=== PATIENT | male | born 1990 | race Caucasian/White ===

== ENCOUNTER 2023-05-03 21:57 | Inpatient (IN) | payer MEDICARE, MEDICAID, SELFPAY ==
--- NOTE | ~2023-05-03 | CT_ITS ---
EXAMINATION: CT ABDOMEN AND PELVIS WITH CONTRAST CLINICAL INFORMATION: Abdominal pain COMPARISON: None available. TECHNIQUE: Multidetector volumetric images were obtained from the superior aspect of the liver through the pubic symphysis following administration 85 mL of Omnipaque 350 intravenous contrast. Sagittal and coronal reformatted images were obtained on the technologist's workstation. Oral contrast: No This CT examination was performed using dose optimization techniques as appropriate, variously including the following: *Automated exposure control *Adjustment of mA and/or kV according to patient size (this includes techniques or standardized protocols for targeted exams where dose is matched to indication/reason for exam; i.e. extremities or head) *Use of iterative reconstruction technique DLP: 491 mGy-cm FINDINGS: LUNG BASES: Unremarkable. ABDOMINAL AND PELVIC WALL: Unremarkable. LIVER AND BILIARY TREE: Unremarkable. GALLBLADDER: Unremarkable. PANCREAS: Unremarkable. SPLEEN: Unremarkable. ADRENAL GLANDS: Unremarkable. KIDNEYS AND URETERS: Left renal hypodensity is too small to characterize. Nonobstructing left lower pole renal stone 4 mm nonobstructing left lower pole renal stone. GASTROINTESTINAL TRACT: Circumferential distal esophageal wall thickening, recommend correlation with symptoms of reflux or esophagitis. Stratified by laminar hyperenhancement involving the rectosigmoid colon. There is long segment stratified bilaminar hyperenhancement involving the distal ileum. There is a small bowel surgical anastomosis in the left hemiabdomen with an end to side anastomosis. Multiple dilated stacked loops of small bowel with fecalization of bowel contents proximal to a loop of jejunum with some mild wall thickening and transmural hyperenhancement with some subtle angulation of the bowel in this region in the right lower quadrant, 3:43, raising suspicion for underlying adhesions and small bowel obstruction, possibly secondary to active inflammatory bowel disease. No pneumatosis or portal venous gas. VASCULAR: IVC filter tip terminates below the level of the renal veins. LYMPH NODES/PERITONEUM: No lymphadenopathy. FREE FLUID: None. BLADDER: Unremarkable. PELVIC VISCERA: Unremarkable. OSSEOUS STRUCTURES: Remote right iliac wing fracture. Age-indeterminate wedge compression deformity of the L2 vertebral body with 25% height loss and mild focal kyphosis at this level. CT/CT abdomen pelvis w IV con IMPRESSION: 1. Multiple dilated stacked loops of small bowel with fecalization of bowel contents proximal to a loop of jejunum with some mild wall thickening and transmural hyperenhancement with some subtle angulation of the bowel in this region in the right lower quadrant, raising suspicion for underlying adhesions and small bowel obstruction, possibly secondary to active inflammatory bowel disease. No pneumatosis or portal venous gas. 2. Stratified by laminar hyperenhancement involving the rectosigmoid colon and long segment of ileum, which can be seen in the setting of inflammatory bowel disease. 3. Age-indeterminate wedge compression deformity of the L2 vertebral body with 25% height loss and mild focal kyphosis at this level. 4. Circumferential distal esophageal wall thickening, recommend correlation with symptoms of reflux or esophagitis. 5. Nonobstructing left lower pole renal stone measuring 4 mm. The findings and recommendations were discussed with Heriberto JIMENEZ by telephone at 05/04/2023 12:08 AM and it was ascertained that the content and urgency of the report was understood at the time of direct communication.
--- NOTE | ~2023-05-03 | FL_ITS ---
EXAMINATION: FL SMALL BOWEL FOLLOW-THROUGH CLINICAL INFORMATION: Abdominal pain, nausea/vomiting COMPARISON: CT abdomen pelvis 05/03/2023 TECHNIQUE: Following a professor of sport management image of the abdomen, contrast was administered through the patient's nasogastric tube., and interval abdominal radiographs were performed to assess for contrast progression through the small bowel. FINDINGS: Head Of Transport Logistics image of the abdomen demonstrates the presence of the nasogastric tube, the tip located in the distal body the stomach. An IVC filter is present at the L3/L4 level. A surgical anastomosis is present in the left upper quadrant. At 1 hour, there is dilute contrast present in the left mid abdomen. The majority of contrast remains in the fundus of the stomach. The patient shortly vomited after the one-hour film. At 1 hour 25 minutes, there is minimal contrast left in the stomach. Very dilute contrast is seen in nondilated small bowel in the left abdomen. In review of the CT abdomen contrast from 05/03/2023, there appears to be thickening of the proximal ileum in the right mid abdomen, with a sudden angulation likely related to adhesions (best seen coronal series 7, image 25 of 92). This is not visible on this small bowel series, and repeat CT imaging in 2 days may be of benefit. FLUOROSCOPY TIME: 0.1 minutes DOSE AREA PRODUCT: 186 uGy-m2 (microgray-meter squared) FL/FL small bowel follow through IMPRESSION: Noncontributory small bowel follow-through. Very dilute Gastrografin is seen in the nondilated small bowel segments in the left abdomen. No dilated bowel, and no definite obstruction seen. Please see above for additional comments regarding the CT examination from 05/03/2023. This procedure was performed by Heriberto Douglass PA-C, and supervised by Dr. Burgess
--- NOTE | ~2023-05-03 | XR_ITS ---
EXAMINATION: XR CHEST CLINICAL INFORMATION: Nasogastric tube placement. COMPARISON: None available. TECHNIQUE: 3 Frontals view of the chest was obtained. FINDINGS: The cardiomediastinal silhouette is within normal limits. There appears to be minimal atelectatic change at the lung bases. The lungs are otherwise clear. A gastric tube is coiled within the esophagus on the first image and is in an expected normal position on the last 2 images extending below the diaphragm with tip overlying the region of the gastric antrum/proximal duodenum. The bony structures and soft tissues are unremarkable XR/XR chest 1V IMPRESSION: Gastric tube in place. There appears to be minimal atelectatic change at the lung bases.
[2023-05-03 22:03] VITALS: BP 130/85; PULSE 80; O2SAT 98
[2023-05-03 22:05] VITALS: BMI 31.3
[2023-05-03] MEDS: 0.9 % Sodium Chloride 1,000 ML 999 ML IV (22:25)
[2023-05-03 22:28] VITALS: RESP 16
[2023-05-03] MEDS: Morphine Sulfate 4 MG/ML CARTRIDGE IVPUSH (22:28)
[2023-05-03] MEDS: ondansetron HCL 4 MG/2 ML VIAL IVPUSH (22:28)
[2023-05-03 22:38] VITALS: BP 132/87; PULSE 64; RESP 16; TEMP 36.9; O2SAT 100
[2023-05-03 22:38] LABS: Basophils Absolute Auto 0.1 X10*3/uL (0.0-0.2); Basophils Percent Auto 0.2 % (0-2); Eosinophils Absolute Auto 0.1 X10*3/uL (0.0-0.4); Eosinophils Percent Auto 0.6 % (0-4); Hematocrit 44.9 % (42.0-52.0); Hemoglobin 15.9 g/dl (14.0-18.0); Imm Gran Abs Auto 0.08 X10*3/uL (0.00-0.03); Imm Gran Pct Auto 0.4 % (0.0-0.4); Lymphocytes Percent Auto 14.2 % (20-40); MANUAL DIFF FLAG SCAN; Mean Corpuscular HGB Conc 35.4 g/dl (31.0-36.0); Mean Corpuscular Hemoglobin 31.9 pg (27.0-33.0); Mean Corpuscular Volume 90.2 fL (80.0-98.0); Mean Platelet Volume 10.1 fL (9.4-12.4); Monocytes Absolute Auto 1.5 X10*3/uL (0.1-1.2); Monocytes Percent Auto 7.1 % (2-11); Neutrophils Absolute Auto 16.6 x10*3/uL (2.0-8.3); Neutrophils Percent Auto 77.5 % (45-73); Platelet Count 243 X10*3/uL (160-400); Red Blood Count 4.98 X10*6/uL (4.60-5.80); Red Cell Distribution Width 12.8 % (11.0-16.0); SCAN SMEAR FLAG 1; White Blood Count 21.5 X10*3/uL (4.8-10.8)
[2023-05-03 22:39] LABS: SLIDE REVIEW VERIFIED
[2023-05-03 22:53] LABS: INTERNATIONAL NORM RATIO 0.9 (0.9-1.1); Prothrombin Time 10.8 SEC (11.1-13.3)
[2023-05-03 22:54] LABS: Anion Gap 21 (12-20); Blood Urea Nitrogen 12 mg/dL (9-16); Calcium 9.2 mg/dL (8.4-10.2); Carbon Dioxide 19 mmol/L (22-29); Chloride 103 mmol/L (96-108); Creatinine Clr Calc Pharmacy 141.9; Estimated Glomerular Filt Rate > 60; Glucose Random 127 mg/dL (60-115); Lipase 39 U/L (8-78); Potassium 4.6 mmol/L (3.3-5.1); Sodium 138 mmol/L (135-145)
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
[2023-05-03 22:56] LABS: Partial Thromboplastin Time 29.3 SEC (26.0-36.4)
[2023-05-03] MEDS: iohexoL 350 MG/ML 100 ML INFUS..BTL IV (23:35)
[2023-05-04 00:24] VITALS: BP 134/97; PULSE 73; RESP 16; TEMP 36.7; O2SAT 99
--- NOTE | 2023-05-04 00:24 | ECG_ITS ---
Test Reason : ABD PAIN Blood Pressure : / mmHG Vent. Rate : 079 BPM Atrial Rate : 079 BPM P-R Int : 106 ms QRS Dur : 102 ms QT Int : 388 ms P-R-T Axes : 076 071 077 degrees QTc Int : 444 ms Sinus rhythm with sinus arrhythmia Otherwise normal ECG No previous ECGs available Referred By: Heriberto Berry Electronically Signed By:AMY SOLANO MD
--- NOTE | 2023-05-04 00:33 | MHC.EDTECH ---
Patient ekg done and was read by Provider ,vitals taken and Pt belonging list done .
[2023-05-04] MEDS: Lidocaine HCl Viscous 2 % 15 ML SOLUTION MUCOUS MEM (00:40)
[2023-05-04] MEDS: ondansetron HCL 4 MG/2 ML VIAL IVPUSH ×2 (00:40→09:33)
--- NOTE | 2023-05-04 00:54 | PC.NURSE ---
attempted x2 to place NG tube. pt unable to sit still. swinging at this RN. pt refusing NG at this time. another RN entered room, third attempt to place NG tube. pt again stating this isnt going to fucking happen unless you sedate me and put me out. i just want to be left alone to fucking sleep. explained to pt the importance of placing tube in regards to his condition. pt still refusing. PA made aware. pt to be medicated with ativan and dilaudid in order to attempt placement of NG tube again. PA did speak with pt and he states he will be more cooperative with NG tube placement.
[2023-05-04] MEDS: HYDROmorphone HCl 1 MG/ML SYRINGE IVPUSH (00:57)
[2023-05-04] MEDS: LORazepam 2 MG/ML VIAL 1 MG IVPUSH (00:57)
--- NOTE | 2023-05-04 01:01 | PC.NURSE ---
medicated per Aug, notified LORELEI Heck
--- NOTE | 2023-05-04 02:44 | PC.NURSE ---
at 2AM pt agreeable to have NG tube placed; after 2 attempts succesfully placed NG tube 16 FR in left nare. placed to intermittent suction.
[2023-05-04 03:00] VITALS: BP 131/85; PULSE 111; RESP 18; TEMP 36.8; O2SAT 95
[2023-05-04] MEDS: Lactated Ringers 1,000 ML 100 ML IVCONT ×3 (03:00→23:28)
--- NOTE | 2023-05-04 06:16 | PHA.MEDREC ---
Pharmacy Consult ? Medication Reconciliation Pharmacy has completed the medication reconciliation. Med rec complete using claim history. Pt family told nursing we needed to find out what the home meds are and pt had tbi so he is unable to assist in med history.
[2023-05-04 06:25] LABS: MANUAL DIFF FLAG NO
[2023-05-04] MEDS: HYDROmorphone HCl 0.5 MG/0.5 ML SYRINGE IVPUSH ×3 (06:35→18:38)
--- NOTE | 2023-05-04 06:38 | PC.NURSE ---
at 0635 medicated with dilaudid 0.5 mg iv pt not sure if he has more pain or he just wants to sleep
[2023-05-04 06:47] LABS: Basophils Percent Auto 0.1 % (0-2); Eosinophils Percent Auto 0.1 % (0-4); Hematocrit 45.1 % (42.0-52.0); Hemoglobin 15.7 g/dl (14.0-18.0); Imm Gran Abs Auto 0.05 X10*3/uL (0.00-0.03); Imm Gran Pct Auto 0.3 % (0.0-0.4); Lymphocytes Absolute Auto 1.4 X10*3/uL (1.2-4.9); Lymphocytes Percent Auto 9.3 % (20-40); Mean Corpuscular HGB Conc 34.8 g/dl (31.0-36.0); Mean Corpuscular Volume 91.9 fL (80.0-98.0); Mean Platelet Volume 10.3 fL (9.4-12.4); Monocytes Absolute Auto 0.9 X10*3/uL (0.1-1.2); Monocytes Percent Auto 6.2 % (2-11); Neutrophils Absolute Auto 12.7 x10*3/uL (2.0-8.3); Platelet Count 228 X10*3/uL (160-400); Red Blood Count 4.91 X10*6/uL (4.60-5.80); Red Cell Distribution Width 12.8 % (11.0-16.0); White Blood Count 15.1 X10*3/uL (4.8-10.8)
[2023-05-04 07:40] VITALS: BP 122/78; PULSE 107; RESP 18; TEMP 36; O2SAT 95
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
[2023-05-04] MEDS: Divalproex Sodium ER 500 MG TAB.ER.24H PO (12:39)
[2023-05-04 16:00] VITALS: BP 116/66; PULSE 99; RESP 18; TEMP 36.6; O2SAT 97
[2023-05-04 19:48] VITALS: BP 116/74; PULSE 109; RESP 18; TEMP 37.1; O2SAT 96
[2023-05-04] MEDS: Divalproex Sodium ER 250 MG TAB.ER.24H PO (20:23)
[2023-05-04] MEDS: Divalproex Sodium ER 500 MG TAB.ER.24H 1000 MG PO (20:23)
[2023-05-04] MEDS: Amitriptyline HCl 50 MG TABLET PO (20:23)
[2023-05-05 03:44] VITALS: BP 103/55; PULSE 98; RESP 16; TEMP 36.3; O2SAT 96
[2023-05-05 06:49] VITALS: BP 107/56; PULSE 90; RESP 16; TEMP 36.1; O2SAT 96
--- NOTE | 2023-05-05 07:58 | P.PNGS_ITS ---
Subjective Subjective Date of Service: 05/05/23 Interval history: Feels much better this morning. He denies any abdominal pain, nausea or vomiting. Passing more flatus. Confirmed with RN as patient poor historian. Physical Exam 2 Vital Signs: Vital Signs: Last Vital Signs Temp 97 F 05/05/23 06:49 Pulse 90 05/05/23 06:49 Resp 16 05/05/23 06:49 BP 107/56 L 05/05/23 06:49 Pulse Ox 96 05/05/23 06:49 O2 Del Method Room Air 05/05/23 06:49 BMI result Body Mass Index 31.3 Const: General: comfortable, no acute distress and alert O rientation/consciousness: patient oriented x3 HEENT: Other: NGT in place, clearish output Resp: Effort & Inspection: normal respiratory effort GI: Inspection: Yes distended (mild, decreased) Palpation (GI): Soft to palpation, nontender, no guarding and not rigid Percussion: Yes normal to percussion Skin: General skin exam: no rashes or lesions noted Neuro: General: patient oriented x3 and moves all extremities Objective Data Active Medications Amitriptyline HCl (Amitriptyline Hcl 50 Mg Tablet) 50 mg PO BEDTIME [facility] Last Admin: 05/04/23 20:23 Dose: 50 mg Documented By: DOUG Amitriptyline HCl (Amitriptyline Hcl 25 Mg Tablet) 25 mg PO DAILY [facility] Divalproex Sodium (Divalproex Sodium Er 500 Mg Tab.Er.24h) 1,000 mg PO BEDTIME [facility] Last Admin: 05/04/23 20:23 Dose: 1,000 mg Documented By: DOUG Divalproex Sodium (Divalproex Sodium Er 250 Mg Tab.Er.24h) 250 mg PO BEDTIME [facility] Last Admin: 05/04/23 20:23 Dose: 250 mg Documented By: DOUG Divalproex Sodium (Divalproex Sodium Er 500 Mg Tab.Er.24h) 500 mg PO DAILY [facility] Hydromorphone HCl (Hydromorphone Hcl 0.5 Mg/0.5 Ml Syringe) 0.5 mg IVPUSH Q4H PRN; Protocol PRN Reason: Pain, Severe (Pain Scale 7-10) Last Admin: 05/04/23 18:38 Dose: 0.5 mg Documented By: MOODY Lactated Ringer's (Lr) 1,000 mls @ 100 mls/hr IVCONT .Q10H [facility] Last Admin: 05/04/23 23:28 Dose: 100 mls/hr Documented By: DOUG Naltrexone HCl (Naltrexone Hcl 50 Mg Tablet) 50 mg PO DAILY [facility] Ondansetron HCl (Ondansetron Hcl 4 Mg/2 Ml Vial) 4 mg IVPUSH Q8H PRN PRN Reason: Nausea and Vomiting Last Admin: 05/04/23 09:33 Dose: 4 mg Documented By: GINNA Sodium Chloride (0.9 % Sodium Chloride Flush 3 Ml Syringe) 3 ml IVFLUSH QSHIFT [facility] Last Admin: 05/04/23 21:03 Dose: Not Given Documented By: DOUG Non-Admin Reason: IV Running Zolpidem Tartrate (Zolpidem Tartrate 5 Mg Tablet) 5 mg PO BEDTIME PRN PRN Reason: Insomnia Labs 05/04/23 05:59 05/03/23 22:27 Procedures Date of Service Date of Service: 05/05/23 Progress Note: A&P Assessment and plan (1) SBO (small bowel obstruction): Status: Acute Plan 33 year old male with multiple abdominal surgeries admitted with SBO. Appears to be resolving. NGT with scant output and with increasing evidence of GI function, abd benign and less distended. Will clamp NGT for 4 hrs, check residual. Unclamp sooner if develops worsening abd pain, nausea or vomiting, increasing abd distention. Patient comfortable with plan. Time Spent With Patient Time: Total time managing care of this patient today ____ minutes. Quality Stroke Does the patient have a stroke diagnosis?: No VTE Prior VTE?: No VTE Risk Level:: Surgical - low VTE Device Contraindication: Treatment Not Indicated VTE Drug Contraindication: Treatment Not Indicated
[2023-05-05] MEDS: Divalproex Sodium ER 500 MG TAB.ER.24H PO (09:20)
[2023-05-05] MEDS: Naltrexone HCl 50 MG TABLET PO (09:20)
[2023-05-05] MEDS: Amitriptyline HCl 25 MG TABLET PO (09:20)
--- NOTE | 2023-05-05 13:37 | MHC.CM.PN ---
Pt not medically cleared for D/C today. CM to follow.
[2023-05-05 16:00] VITALS: BP 131/73; PULSE 93; RESP 16; TEMP 36.2; O2SAT 98
[2023-05-05] MEDS: 0.9 % Sodium Chloride Flush 3 ML SYRINGE IVFLUSH (16:55)
[2023-05-05] MEDS: Lactated Ringers 1,000 ML 100 ML IVCONT ×2 (16:55→20:09)
[2023-05-05 19:35] VITALS: BP 119/75; PULSE 78; RESP 16; TEMP 36.7; O2SAT 99
[2023-05-05] MEDS: Amitriptyline HCl 50 MG TABLET PO (20:08)
[2023-05-05] MEDS: Divalproex Sodium ER 500 MG TAB.ER.24H 1000 MG PO (20:08)
[2023-05-05] MEDS: Divalproex Sodium ER 250 MG TAB.ER.24H PO (20:08)
[2023-05-06 03:50] VITALS: BP 105/59; PULSE 88; RESP 18; TEMP 36.1; O2SAT 99
[2023-05-06] MEDS: Lactated Ringers 1,000 ML 100 ML IVCONT (04:52)
[2023-05-06 06:55] VITALS: BP 110/58; PULSE 72; RESP 16; TEMP 36.1; O2SAT 98
[2023-05-06] MEDS: Nicotine 21 MG PATCH.TD24 TRANSDERMA (09:04)
[2023-05-06] MEDS: Divalproex Sodium ER 500 MG TAB.ER.24H PO (09:05)
[2023-05-06] MEDS: Amitriptyline HCl 25 MG TABLET PO (09:05)
[2023-05-06] MEDS: Naltrexone HCl 50 MG TABLET PO (09:05)
--- NOTE | 2023-05-06 09:05 | PM.PNGS ---
Subjective Subjective Date of Service: 05/06/23 Interval history: IV infiltrated and R hand swollen. Feels great, denies abdominal pain. Tolerating liquids. Continues to pass flatus and had another BM this movement. Wants to eat and go home. Physical Exam Vital Signs: Vital Signs: Last Vital Signs Temp 97 F 05/06/23 06:55 Pulse 72 05/06/23 06:55 Resp 16 05/06/23 06:55 BP 110/58 L 05/06/23 06:55 Pulse Ox 98 05/06/23 06:55 O2 Del Method Room Air 05/06/23 06:55 BMI result Body Mass Index 31.3 Const: General: comfortable, no acute distress and alert Orientation/consciousness: patient oriented x3 Resp: Effort & Inspection: normal respiratory effort GI: Inspection: No distended Palpation (GI): Soft to palpation, nontender, no guarding and not rigid Percussion: Yes normal to percussion Skin: General skin exam: no rashes or lesions noted Neuro: General: patient oriented x3 Objective Data Active Medications Amitriptyline HCl (Amitriptyline Hcl 50 Mg Tablet) 50 mg PO BEDTIME [facility] Last Admin: 05/05/23 20:08 Dose: 50 mg Documented By: DOUG Amitriptyline HCl (Amitriptyline Hcl 25 Mg Tablet) 25 mg PO DAILY [facility] Last Admin: 05/05/23 09:20 Dose: 25 mg Documented By: J LUIS Divalproex Sodium (Divalproex Sodium Er 500 Mg Tab.Er.24h) 1,000 mg PO BEDTIME [facility] Last Admin: 05/05/23 20:08 Dose: 1,000 mg Documented By: DOUG Divalproex Sodium (Divalproex Sodium Er 250 Mg Tab.Er.24h) 250 mg PO BEDTIME [facility] Last Admin: 05/05/23 20:08 Dose: 250 mg Documented By: DOUG Divalproex Sodium (Divalproex Sodium Er 500 Mg Tab.Er.24h) 500 mg PO DAILY [facility] Last Admin: 05/05/23 09:20 Dose: 500 mg Documented By: J LUIS Hydromorphone HCl (Hydromorphone Hcl 0.5 Mg/0.5 Ml Syringe) 0.5 mg IVPUSH Q4H PRN; Protocol PRN Reason: Pain, Severe (Pain Scale 7-10) Last Admin: 05/04/23 18:38 Dose: 0.5 mg Documented By: MOODY Naltrexone HCl (Naltrexone Hcl 50 Mg Tablet) 50 mg PO DAILY [facility] Last Admin: 05/05/23 09:20 Dose: 50 mg Documented By: J LUIS Nicotine (Nicotine 21 Mg Patch.Td24) 21 mg TRANSDERMA DAILY [facility] Ondansetron HCl (Ondansetron Hcl 4 Mg/2 Ml Vial) 4 mg IVPUSH Q8H PRN PRN Reason: Nausea and Vomiting Last Admin: 05/04/23 09:33 Dose: 4 mg Documented By: GINNA Sodium Chloride (0.9 % Sodium Chloride Flush 3 Ml Syringe) 3 ml IVFLUSH QSHIFT [facility] Last Admin: 05/05/23 20:13 Dose: Not Given Documented By: DOUG Non-Admin Reason: IV Running Zolpidem Tartrate (Zolpidem Tartrate 5 Mg Tablet) 5 mg PO BEDTIME PRN PRN Reason: Insomnia Labs 05/04/23 05:59 05/03/23 22:27 Procedures Date of Service Date of Service: 05/06/23 Progress Note: A&P Assessment and plan (1) SBO (small bowel obstruction): Status: Acute Plan Advance to solid diet. Home if tolerating without symptoms. Patient comfortable with plan. encouraged R hand elevation, hot packs to reduce swelling. Time Spent With Patient Time: Total time managing care of this patient today ____ minutes. Quality Stroke Does the patient have a stroke diagnosis?: No VTE Prior VTE?: No VTE Risk Level:: Surgical - low VTE Device Contraindication: Treatment Not Indicated VTE Drug Contraindication: Treatment Not Indicated
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
--- NOTE | 2023-05-06 13:16 | MHC.CM.PN ---
IMM 05/04/23 Patient is discharged to home self care today. Family will provide assist and transport home.
== END 2023-05-06 12:42 | disposition home or self-care (01) | DRG 390 ==
LOC: HO.ED 05-04 00:28 → HO.EDOVER 05-04 00:42 → HO.S3 05-04 02:17
PROVIDERS: Physician Assistant; Admitting Provider Surgery; Emergency Provider Emergency Medicine; PCP Internal Medicine; Visit Provider Surgery
DX: K56.609 Unspecified intestinal obstruction, unspecified as to partial versus complete obstruction (principal); Z87.820 Personal history of traumatic brain injury; Z79.899 Other long term (current) drug therapy
CPT/HCPCS: 36415; 71045; 74177; 74250; 80048; 83605; 83690; 85025; 85610; 85730; 93005; 99285; J1170; J2060; J2270; J2405; J7120; Q9967

== ENCOUNTER 2023-05-04 00:32 | Outpatient (BNV) | payer MEDICARE, MEDICAID, SELFPAY | END 2023-05-04 07:45 | PROVIDERS: Admitting Provider Surgery; Emergency Provider Emergency Medicine; PCP Internal Medicine; Visit Provider Radiology Diagnostic Radiology | DX: R10.9 Unspecified abdominal pain (principal) | CPT/HCPCS: 74250 ==

== ENCOUNTER → 2023-05-04 00:32 | Outpatient (BNV) | payer MEDICARE, MEDICAID, SELFPAY | PROVIDERS: Admitting Provider Surgery; Emergency Provider Emergency Medicine; PCP Internal Medicine; Visit Provider Physician Assistant Surgical | DX: K56.609 Unspecified intestinal obstruction, unspecified as to partial versus complete obstruction (principal) | CPT/HCPCS: 99222; 99232; 99238 ==

== ENCOUNTER 2023-05-18 00:55 | Emergency (ER) | payer MEDICARE, MEDICAID, SELFPAY ==
--- NOTE | 2023-05-18 | ECG_ITS ---
Test Reason : SEIZURE Blood Pressure : / mmHG Vent. Rate : 091 BPM Atrial Rate : 091 BPM P-R Int : 136 ms QRS Dur : 096 ms QT Int : 356 ms P-R-T Axes : 045 046 056 degrees QTc Int : 437 ms Normal sinus rhythm Normal ECG When compared with ECG of 04-MAY-2023 00:26, No significant change was found Referred By: Generic ED Physician Electronically Signed By:NURYS CHAVEZ
[2023-05-18 01:02] VITALS: BP 111/79; PULSE 96; O2SAT 100; BMI 21.5
[2023-05-18 01:12] VITALS: BP 126/82; PULSE 100; RESP 18; TEMP 36.7; O2SAT 98
[2023-05-18 01:30] LABS: MANUAL DIFF FLAG NO
[2023-05-18 01:32] LABS: Basophils Percent Auto 0.4 % (0-2); Eosinophils Absolute Auto 0.2 X10*3/uL (0.0-0.4); Eosinophils Percent Auto 2.8 % (0-4); Hematocrit 42.6 % (42.0-52.0); Hemoglobin 14.3 g/dl (14.0-18.0); Imm Gran Abs Auto 0.03 X10*3/uL (0.00-0.03); Imm Gran Pct Auto 0.4 % (0.0-0.4); Lymphocytes Absolute Auto 2.9 X10*3/uL (1.2-4.9); Lymphocytes Percent Auto 35.4 % (20-40); Mean Corpuscular HGB Conc 33.6 g/dl (31.0-36.0); Mean Corpuscular Hemoglobin 31.6 pg (27.0-33.0); Mean Corpuscular Volume 94.2 fL (80.0-98.0); Monocytes Absolute Auto 0.7 X10*3/uL (0.1-1.2); Neutrophils Absolute Auto 4.4 x10*3/uL (2.0-8.3); Platelet Count 217 X10*3/uL (160-400); Red Blood Count 4.52 X10*6/uL (4.60-5.80); Red Cell Distribution Width 13.3 % (11.0-16.0); White Blood Count 8.2 X10*3/uL (4.8-10.8)
[2023-05-18 01:41] LABS: Valproate 46.8 mcg/mL (50.0-100.0)
[2023-05-18 01:42] LABS: Lactic Acid 2.1 mmol/L (0.5-2.0)
[2023-05-18 01:45] LABS: Alanine Aminotransferase 12 U/L (0-40); Albumin Level 3.6 g/dL (3.5-5.0); Alkaline Phosphatase 44 U/L (39-117); Anion Gap 13 (12-20); Aspartate Amino Transferase 16 U/L (5-37); Bilirubin Total 0.2 mg/dL (0.0-1.0); Blood Urea Nitrogen 8 mg/dL (9-16); Calcium 8.4 mg/dL (8.4-10.2); Carbon Dioxide 24 mmol/L (22-29); Chloride 110 mmol/L (96-108); Creatinine Clr Calc Pharmacy 138.9; Estimated Glomerular Filt Rate > 60; Glucose Random 79 mg/dL (60-115); Sodium 143 mmol/L (135-145); Total Protein 6.1 g/dL (6.5-8.0)
[2023-05-18 03:27] LABS: Reflex Lactate? Lactic Acid Added
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
[2023-05-18] MEDS: Divalproex Sodium ER 500 MG TAB.ER.24H 1000 MG PO (05:52)
[2023-05-18 06:11] VITALS: PULSE 87; RESP 19; O2SAT 97
[2023-05-18 07:52] LABS: ~Lactic Acid-LAB USE ONLY 0.8 mmol/L (0.5-2.0)
--- NOTE | 2023-05-18 08:35 | PC.NURSE ---
assumed care of pt at 0700. pt has been sleeping and father is at bedside. pt woken up for repeat labs. appeared mildly agitated, pt is extremely lethargic. pt offers no other complaints edwin, asking to go back to sleep . rr even/unlabored. call kulkarni within pt reach. plan of care ongoing.
--- NOTE | 2023-05-18 09:28 | PC.NURSE ---
pt father has some hesitations about taking pt home ed[place]. provider notified and will speak with family/patient.
[2023-05-18 09:29] VITALS: BP 108/60; PULSE 90; RESP 19; TEMP 36.6; O2SAT 98
== END 2023-05-18 10:51 | disposition home or self-care (01) ==
PROVIDERS: Emergency Provider Emergency Medicine; PCP Internal Medicine
DX: R56.9 Unspecified convulsions (principal); R11.2 Nausea with vomiting, unspecified; Z79.899 Other long term (current) drug therapy
CPT/HCPCS: 36415; 80053; 80164; 83605; 85025; 93005; 99283; 99284

== ENCOUNTER → 2023-05-18 01:48 | Outpatient (BNV) | payer MEDICARE, MEDICAID, SELFPAY | PROVIDERS: Emergency Provider Emergency Medicine; PCP Internal Medicine; Visit Provider Internal Medicine | DX: R56.9 Unspecified convulsions (principal) | CPT/HCPCS: 93010 ==